=== PATIENT | female | born 1975 | race Caucasian/White ===

== ENCOUNTER → 2023-02-04 09:37 | Outpatient (CLI) | payer BC, SELFPAY ==
--- NOTE | ~2023-02-04 | US_ITS ---
EXAMINATION: US thyroid DATE: 02/04/2023 10:23 INDICATION: Nontoxic single thyroid nodule. TECHNIQUE: Multiple ultrasound images of the thyroid were obtained. COMPARISON: None. FINDINGS: The right thyroid lobe measures 4.7 x 2.1 x 1.9 cm. The left thyroid lobe measures 4.4 x 1.8 x 1.7 c m. The thyroid demonstrates heterogeneous echogenicity. Vascularity is increased. No discrete nodule . IMPRESSION: 1. Heterogeneous, hypervascular thyroid, likely chronic lymphocytic (Karson) thyroiditis. Reviewed, dictated and finalized at location E. WHIZ MACHINE OPERATOR
== END ==
PROVIDERS: PCP Internal Medicine; Visit Provider Internal Medicine
DX: E04.1 Nontoxic single thyroid nodule (principal)
CPT/HCPCS: 76536

== ENCOUNTER 2023-04-06 07:49 | Outpatient (CLI) | payer BC, SELFPAY ==
[2023-04-06 08:23] LABS: Anion Gap 4 mmol/L (8-16); Blood Urea Nitrogen 16 mg/dL (7-17); Calcium 8.5 mg/dL (8.4-10.2); Carbon Dioxide 27 mmol/L (22-30); Chloride 105 mmol/L (98-107); Cholesterol 169 mg/dL (0-200); Estimated Glomerular Filt Rate > 60; Glucose 108 mg/dL (65-110); HDL Direct 51 mg/dL; Potassium 3.8 mmol/L (3.4-5.0); Sodium 136 mmol/L (137-145); Triglycerides 177 mg/dL (<150)
[2023-04-06 08:31] LABS: LDL Cholesterol Direct 86 mg/dL
== END 2023-04-06 07:50 | disposition home or self-care (01) ==
LOC: ANHLAB 07:52
PROVIDERS: PCP Family Medicine; Visit Provider Internal Medicine
DX: E11.69 Type 2 diabetes mellitus with other specified complication (principal); E66.9 Obesity, unspecified; E78.5 Hyperlipidemia, unspecified; E28.2 Polycystic ovarian syndrome
CPT/HCPCS: 36415; 80048; 80061

== ENCOUNTER 2023-07-06 08:04 | Outpatient (CLI) | payer BC, SELFPAY ==
--- NOTE | ~2023-07-06 | XR_ITS ---
EXAMINATION: XR hip RT min 2V DATE: 07/06/2023 08:22 INDICATION: Right hip pain. TECHNIQUE: 2 views of right hip were obtained. COMPARISON: None. FINDINGS: Bone alignment is normal. No fracture. Right hip joint space is normal. IMPRESSION: 1. Normal right hip. Reviewed, dictated and finalized at location A. IMPRESSION: 1. Normal right hip.
== END 2023-07-06 08:05 | disposition home or self-care (01) ==
LOC: ANHIMG 08:08
PROVIDERS: PCP Family Medicine; Visit Provider Registered Nurse
DX: M25.551 Pain in right hip (principal)
CPT/HCPCS: 73502

== ENCOUNTER 2024-10-19 07:54 | Outpatient (CLI) | payer BC, SELFPAY ==
--- OUTSIDE RECORDS SUMMARY | 2024-02-22 04:20 | XMS_ITS ---
Author Organization [facility] Address [address] [place], [place] [id number] Care Team Providers Care Football Coach Name Role Phone LUBNA SMITH Unavailable [phone] Celso Berkowitz Unavailable Unavailable REASON FOR VISIT *Orthotic pick-up Encounters Encounter Location Date Provider Diagnosis [facility] [place] [address] [facility] [address] [place], [place] [phone] 02/22/2024 LUBNA SMITH Plan Of Treatment No Information Progress Notes * Jg MAOaDOB:1975 (49 yo F)Acc No.[id number]:02/22/2024 Patient: Ivet LE Provider: Lazaro Smith DPM :1975 A ge:48 Y S ex:Female Date:02/22/2024 Address:[address] [place], [place] [id number] Subjective: * Chief Complaints: * 1 . *Orthotic pick-up. * Medical History: Objective: * Vitals: Assessment: Plan: * Treatment: * Billing Information: * Visit Code: * Procedure Codes: * Electronic signature of LUBNA SMITH DPM on 10/19/2024 at 07:59 AM CDT Sign off status: Pending * Provider: Lazaro Smith DPM Date: 0 02/22/2024 Generated for Ripi ng/Fajarrellg/eTransmitting on: 0 10/19/2024 07:59 AM CDT
--- OUTSIDE RECORDS SUMMARY | 2024-04-18 03:50 | XMS_ITS ---
Author Organization [facility] Address [address] [place], [place] [phone] Care Team Providers Care Wire Welder Name Role Phone LUBNA SMITH Unavailable [phone] Celso Berkowitz Unavailable Unavailable REASON FOR VISIT *Orthotic follow-up Encounters Encounter Location Date Provider Diagnosis [facility] [place] [address] [place], [place] [phone] 04/18/2024 LUBNA SMITH Plan Of Treatment No Information Progress Notes * Jg MAOaDOB:1975 (49 yo F)Acc No.[id number]:04/18/2024 Patient: Ivet LE Provider: Lazaro Smith DPM :1975 A ge:49 Y S ex:Female Date:04/18/2024 Address:[address] [place], [place] [phone] Subjective: * Chief Complaints: * 1 . *Orthotic follow-up. * Medical History: Objective: * Vitals: Assessment: Plan: * Treatment: * Billing Information: * Visit Code: * Procedure Codes: * Electronic signature of LUBNA SMITH DPM on 10/19/2024 at 07:59 AM CDT Sign off status: Pending * Provider: Lazaor Smith DPM Date: 04/18/2024 Generated for Ripi ng/Fajarrellg/eTransmitting on: 10/19/2024 07:59 AM CDT
--- OUTSIDE RECORDS SUMMARY | 2024-10-19 07:59 | XMS_ITS | Patient Health Record ---
Author Organization [facility] Address [address] [place], [place] [phone] Care Team Providers Care Concession Cashier Name Role Phone LUBNA SMITH Unavailable [phone] Celso Berkowitz Unavailable Unavailable Allergies Allergen (clinical drug ingredient) Drug/Non Drug Allergy documented on EMR Reaction Allergy Type Onset Date Status Substance with sulfonamide structure and antibacterial mechanism of action (substance) Sulfa Antibiotics Unknown Drug Allergy Active Reason For Referral No Information Medications Medication SIG (Take, Route, Frequency, Duration) Notes Start Date End Date Status Rosuvastatin Calcium 20 MG 1 tablet Oral ly Once a day Active Semaglutide Active Levothyroxine Sodium 25 MCG 1 tablet in the morning on an empty stomach Orally Once a day Active Escitalopram Oxalate 20 MG 1 tablet Oral ly Once a day Active Azelastine HCl 137 MCG/SPRAY 1 puff in e ach nostril Nasally Twice a day Active Pantoprazole Sodium 40 MG 1 tablet Orall y Once a day Active Multivitamin Active metFORMIN HCl ER 500 MG 1 tablet with ev ening meal Orally Once a day Active Losartan Potassium 50 MG 1 tablet Orally Once a day Active Vital Signs Weight-kg 120.66 kg 12/14/2023 Weight 266 lbs 12/14/2023 Encounters Encounter Location Date Provider Diagnosis [facility] [place] [address] [place] [phone] 10/26/2023 LUBNA SMITH Pathological fractur e in other disease, left foot, subsequent encounter for fracture with routine healing M84.675D and Left foot pain M79.672 [facility] [place] [address] [place], [place] [phone] 11/09/2023 LUBNA SNOOK Pathological fractur e in other disease, left foot, subsequent encounter for fracture with routine healing M84.675D and Left foot pain M79.672 [facility] [place] [facility] [address] [place] [id number] 11/23/2023 LUBNA SNOOK Pathological fractur e in other disease, left foot, subsequent encounter for fracture with routine healing M84.675D ; Plantar fasciitis M72.2 ; Metatarsalgia of left foot M77.42 and Left foot pain M79.672 [facility] [place] [facility] [address] [place] [id number] 12/14/2023 LUBNA SNOOK Pathological fractur e in other disease, left foot, subsequent encounter for fracture with routine healing M84.675D ; Metatarsalgia of left foot M77.42 and Left foot pain M79.672 [facility] [place] [address] [id number] 01/06/2024 LUBNA SNOOK Contusion of left gr eat toe with damage to nail, initial encounter S90.212A and Pain in left toe(s) M79.675 [facility] [place] [address] [address] [place] [id number] 01/11/2024 LUBNA SNOOK Metatarsalgia of lef t foot M77.42 ; Ingrowing nail L60.0 ; Plantar fasciitis M72.2 and Left foot pain M79.672 [facility] [place] [facility] [address] [place] [phone] 03/21/2024 LUBNA SNOOK Metatarsalgia of lef t foot M77.42 ; Contusion of left great toe without damage to nail, initial encounter S90.112A ; Ingrowing nail L60.0 ; Plantar fasciitis M72.2 and Left foot pain M79.672 Assessments Encounter Date Diagnosis (ICD Code) Assessment Notes Treatment Notes Treatment Clinical Notes Section Notes 10/26/2023 Pathological fracture in other disease, left foot, subsequent encounter for fracture with routine healing (ICD-10 - M84.675D) 10/26/2023 Left foot pain (ICD-10 - M79.672) 11/09/2023 Pathological fracture in other disease, left foot, subsequent encounter for fracture with routine healing (ICD-10 - M84.675D) Stress Fracture: I discussed with the patient the nature and etiology of stress fractures. I discussed various treatment options consisting of immobilization, reducing activity and rest. I also discussed the use of orthotics to help prevent recurrence. Continue CAM: Advised the patient to continue to wear the CAM boot as directed and to limit activity. 11/09/2023 Left foot pain (ICD-10 - M79.672) 11/23/2023 Pathological fracture in other disease, left foot, subsequent encounter for fracture with routine healing (ICD-10 - M84.675D) Stress Fracture: I discussed with the patient the nature and etiology of stress fractures. I discussed various treatment options consisting of immobilization, reducing activity and rest. I also discussed the use of orthotics to help prevent recurrence. Discontinue CAM boot. Gradual return to shoes and OTC inserts. Dispensed Powerstep inserts. If she is able to adjust to these she can return to work later this week if possible. Orthotic Scan: The patient was scanned for functional orthotic devices. This was done in the subtalar joint neutral position in a non-weightbearing fashion. The patient will follow-up in 3-4 weeks time to be dispensed and fitted with the devices. 11/23/2023 Plantar fasciitis (ICD-10 - M72.2) 12/14/2023 Metatarsalgia of left foot (ICD-10 - M77.42) 01/06/2024 Pain in left toe(s) (ICD-10 - M79.675) 01/06/2024 Contusion of left great toe with damage to nail, initial encounter (ICD-10 - S90.212A) The nonviable tissue was debrided without incident. Patient noted relief 01/11/2024 Ingrowing nail (ICD-10 - L60.0) 12/14/2023 Pathological fracture in other disease, left foot, subsequent encounter for fracture with routine healing (ICD-10 - M84.675D) Stress Fracture Resolved The fracture has resolved. I advised the patient to continue to monitor this area for pain or swelling. I also advised the patient to avoid bare feet or any high impact activities until it is done healing. The patient understands to contact the office if any signs of symptoms return. Orthotic Dispense: The orthotic devices were dispensed and fitted. It was noted that the orthotic conformed well to the patient's foot in the subtalar joint neutral position. The patient was educated on the device's use, as well as the gradual break-in period for the device. 01/11/2024 Metatarsalgia of left foot (ICD-10 - M77.42) Metatarsalgia: I discussed anti-inflammatory treatment options and various means of immobilization with the patient. I educated the patient on icing and stretching, supportive shoegear, and the use of orthotic devices and bracing. Orthotic Modification: Send orthotics back to lab to be modified accordingly. Patient will pick up and delivery driver the devices when they arrive. Patient will repeat break-in period and follow-up 3-4 weeks after getting the orthotics. 03/21/2024 Contusion of left great toe without damage to nail, initial encounter (ICD-10 - S90.112A) 03/21/2024 Metatarsalgia of left foot (ICD-10 - M77.42) Metatarsalgia: I discussed anti-inflammatory treatment options and various means of immobilization with the patient. I educated the patient on icing and stretching, supportive shoegear, and the use of orthotic devices and bracing. Orthotic Dispense: The orthotic devices were dispensed and fitted. It was noted that the orthotic conformed well to the patient's foot in the subtalar joint neutral position. The patient was educated on the device's use, as well as the gradual break-in period for the device. 11/23/2023 Metatarsalgia of left foot (ICD-10 - M77.42) 03/21/2024 Ingrowing nail (ICD-10 - L60.0) 12/14/2023 Left foot pain (ICD-10 - M79.672) 01/11/2024 Plantar fasciitis (ICD-10 - M72.2) 01/11/2024 Left foot pain (ICD-10 - M79.672) 11/23/2023 Left foot pain (ICD-10 - M79.672) 03/21/2024 Plantar fasciitis (ICD-10 - M72.2) Plantar Fascitis: I discussed anti-inflammatory treatment options and various means of pronation control with the patient. I educated the patient on icing and stretching, supportive shoegear, and the use of orthotic devices. 03/21/2024 Left foot pain (ICD-10 - M79.672) 10/26/2023 Other Stress Fracture: I discussed with the patient the nature and etiology of stress fractures. I discussed various treatment options consisting of immobilization, reducing activity and rest. I also discussed the use of orthotics to help prevent recurrence. Continue CAM: Advised the patient to continue to wear the CAM boot as directed and to limit activity. Work Restrictions: Provided a note to the patient outlining work restrictions and limitations. 12/14/2023 Other I told her the toenail is stable and we will monitor it. The scant bruising will take 9 months to grow out 01/11/2024 Other Patient may discontinue care for her great toe; but continue to monitor it Plan Of Treatment No Information Insurance Providers Payer Name Payer Address Payer Phone Subscriber Number Group Number Insured Name Patient Relationship to Insured Coverage Start Date Coverage End Date [facility] ([facility]) ATTN CLAIMS [address] [place] [address] [id number] Ivet Chan Self - patient is the insured Medical (General) History Medical History History ICD Code GERD Sleep apnea Thyroid Disease Back Trouble Diabetic restless leg syndrome
[2024-10-19 09:28] LABS: Free T4 Free Thyroxine 0.95 ng/dL (0.78-2.19)
[2024-10-19 09:33] LABS: Thyroid Stimulating Hormone 1.600 uIU/mL (0.465-4.680)
== END 2024-10-19 07:55 | disposition home or self-care (01) ==
PROVIDERS: PCP Family Medicine; Referring Provider Family Medicine; Visit Provider Internal Medicine
DX: E28.2 Polycystic ovarian syndrome (principal); E11.69 Type 2 diabetes mellitus with other specified complication; E66.9 Obesity, unspecified; E03.9 Hypothyroidism, unspecified; E78.5 Hyperlipidemia, unspecified; I10 Essential (primary) hypertension; E04.1 Nontoxic single thyroid nodule; Z71.3 Dietary counseling and surveillance
CPT/HCPCS: 36415; 80299; 82306; 82533; 84439; 84443

== ENCOUNTER 2024-11-16 07:37 | Outpatient (CLI) | payer BC, SELFPAY ==
--- OUTSIDE RECORDS SUMMARY | 2024-02-22 04:20 | XMS_ITS ---
Author Organization [facility] Address [address] [place], [place] [phone] Care Team Providers Care Bobbin Disker Name Role Phone LUBNA SMITH Unavailable [phone] Celso Berkowitz Unavailable Unavailable REASON FOR VISIT *Orthotic pick-up Encounters Encounter Location Date Provider Diagnosis [facility] [place] [address] [place], [place] [phone] 02/22/2024 LUBNA SMITH Plan Of Treatment No Information Progress Notes * Jg MAOaDOB:1975 (49 yo F)Acc No.[id number]:02/22/2024 Patient: Ivet LE Provider: Lazaro Smith DPM :1975 A ge:48 Y S ex:Female Date:02/22/2024 Address:[address] [place], [place] [id number] Subjective: * Chief Complaints: * 1 . *Orthotic pick-up. * Medical History: Objective: * Vitals: Assessment: Plan: * Treatment: * Billing Information: * Visit Code: * Procedure Codes: * Electronic signature of LUBNA SMITH DPM on 11/16/2024 at 07:41 AM CDT Sign off status: Pending * Provider: Lazaro Smith DPM Date: 0 02/22/2024 Generated for Ripi ng/Fajrarellg/eTransmitting on: 1 07:41 AM CDT
--- OUTSIDE RECORDS SUMMARY | 2024-04-18 03:50 | XMS_ITS ---
Author Organization [facility] Address [address] [place], [place] [phone] Care Team Providers Care Rehabilitation Tech Name Role Phone LUBNA SMITH Unavailable [phone] Celso Berkowitz Unavailable Unavailable REASON FOR VISIT *Orthotic follow-up Encounters Encounter Location Date Provider Diagnosis [facility] [place] [address] [place], [place] [phone] 04/18/2024 LUBNA SMITH Plan Of Treatment No Information Progress Notes * Jg MAOaDOB:1975 (49 yo F)Acc No.[id number]:04/18/2024 Patient: Ivet LE Provider: Lazaro Smith DPM :1975 A ge:49 Y S ex:Female Date:04/18/2024 Address:[address] [place], [place] [phone] Subjective: * Chief Complaints: * 1 . *Orthotic follow-up. * Medical History: Objective: * Vitals: Assessment: Plan: * Treatment: * Billing Information: * Visit Code: * Procedure Codes: * Electronic signature of LUBNA SMITH DPM on 11/16/2024 at 07:41 AM CDT Sign off status: Pending * Provider: Lazaro Smith DPM Date: 0 04/18/2024 Generated for Ripi ng/Fajarrellg/eTransmitting on: 1 07:41 AM CDT
--- NOTE | ~2024-11-16 | MM_ITS ---
EXAMINATION: MM screening angel luis BI w katerina HISTORY: Screening TECHNIQUE: Craniocaudal and mediolateral oblique 3-D tomosynthesis images were obtained and synthetic 2-D images were generated. CAD analysis was submitted and interpreted. COMPARISON: No prior mammogram is available for comparison at this institution. BREAST PARENCHYMAL COMPOSITION: Not Dense: The breasts are almost entirely fatty. FINDINGS: There is no evidence of suspicious mass, calcification, or architectural distortion to suggest malignancy in either breast. There has been no suspicious interval change. IMPRESSION: 1. No mammographic evidence of malignancy. 2. Recommend routine screening mammography in one year. BI-RADS Category 1: Negative Reviewed, dictated and finalized at location B.
--- OUTSIDE RECORDS SUMMARY | 2024-11-16 07:42 | XMS_ITS | Patient Health Record ---
Author Organization [facility] Address [address] [place], [place] [id number] Care Team Providers Care Assembler Product Name Role Phone LUBNA SMITH Unavailable [phone] Celso Berkowitz Unavailable Unavailable Allergies Allergen (clinical [...] [facility] [place] [address] [place], [place] [phone] 11/23/2023 LUBNA SMITH Pathological fractur e in other disease, left foot, subsequent encounter for fracture with routine healing M84.675D ; Plantar fasciitis M72.2 ; Metatarsalgia of left foot M77.42 and Left foot pain M79.672 [facility] [place] [address] [place] [phone] 12/14/2023 LUBNA SNOOK Pathological fractur e in other disease, left foot, subsequent encounter for fracture with routine healing M84.675D ; Metatarsalgia of left foot M77.42 and Left foot pain M79.672 [facility] [address] [facility] [address] [place], [place] [phone] 01/06/2024 LUBNA SNOOK Contusion of left gr eat toe with damage to nail, initial encounter S90.212A and Pain in left toe(s) M79.675 [facility] [place] [address] [place] [phone] 01/11/2024 LUBNA SNOOK Metatarsalgia of lef t foot M77.42 ; Ingrowing nail L60.0 ; Plantar fasciitis M72.2 and Left foot pain M79.672 [facility] [place] [address] [place] [phone] 03/21/2024 LUBNA SNOOK Metatarsalgia of lef t foot M77.42 ; Contusion of left great toe without damage to nail, initial encounter S90.112A ; Ingrowing nail L60.0 ; Plantar fasciitis M72.2 and Left foot pain M79.672 Assessments Encounter Date Diagnosis (ICD Code) Assessment Notes Treatment Notes Treatment Clinical Notes Section Notes 11/23/2023 Pathological fracture in other disease, left [...] lab to be modified accordingly. Patient will citrus picker the devices when they arrive. Patient will [...] 03/21/2024 Left foot pain (ICD-10 - M79.672) 12/14/2023 Other I told her the toenail [...] Insured Coverage Start Date Coverage End Date [facility] ([facility]) ATTN CLAIMS [address] [place] [address] [id number] Ivet Chan Self - patient is the insured Medical (General) History Medical History History ICD Code GERD Sleep apnea Thyroid Disease Back Trouble Diabetic restless leg syndrome
== END 2024-11-16 07:38 | disposition home or self-care (01) ==
LOC: ANHFOHIMG 07:39
PROVIDERS: PCP Family Medicine; Visit Provider Family Medicine
DX: Z12.31 Encounter for screening mammogram for malignant neoplasm of breast (principal)
CPT/HCPCS: 77063; 77067